=== PATIENT | female | born 1950 | race African-American/Black ===

== ENCOUNTER 2017-01-01 19:20 | Inpatient (IN) | payer OTHER ==
[~2017-01-01] VITALS: Ht 172.7 cm; Wt 155.3 kg
[2017-01-01] MEDS ORDERED: IPRATROPIUM BROM 0.5 MG/2.5ML INH SOL NEB ONE ×2 (19:45)
[2017-01-01] MEDS ORDERED: ALBUTEROL SULF 2.5 MG/0.5ML(0.5%) NEB SOLN NEB ONE ×2 (19:45)
[2017-01-01 20:11] LABS: Basophils % (auto) 0.4 % (0.0-2.0); Hemoglobin 12.3 g/dL (12.2-16.2); Mean Corpuscular Hemoglobin 27.2 pg (28.0-32.0); Monocytes # (auto) 1.4 uL; Neutrophils # (auto) 9.1 uL; Nucleated Red Blood Cells % 0.1 %; Red Cell Distribution Width 16.2 % (11.8-14.3)
[2017-01-01 20:13] LABS: Basophils # (auto) 0 uL; Eosinophils # (auto) 0 uL; Eosinophils % (auto) 0.4 % (0.0-7.0); Hematocrit 40.7 % (36.0-46.0); Lymphocytes # (auto) 1.5 uL; Lymphocytes % (auto) 12.6 % (10.0-50.0); Mean Corpuscular Hgb Conc. 30.3 g/dL (32.0-36.0); Monocytes % (auto) 11.3 % (0.0-12.0); Neutrophils % (auto) 75.3 % (37.0-80.0); Platelet Count (auto) 218 10^3/uL (140-450); Red Blood Cells 4.52 10^6/uL (4.0-5.20)
[2017-01-01 20:28] LABS: Albumin 2.6 g/dL (3.4-5.0); BUN/Creatinine Ratio 30.6; Calcium 8.6 mg/dL (8.5-10.1); INR 1.04 (0.9-1.15); Magnesium 2.6 mg/dL (1.6-2.6); Partial Thromboplastin Time 28.7 sec (22.64-33.71); Potassium 4.6 mmol/L (3.5-5.1); Prothrombin Time 11.3 sec (9.37-12.3)
[2017-01-01 20:36] LABS: Bilirubin, Total 0.4 mg/dL (0.2-1.0); Total Protein 7.9 g/dL (6.4-8.2)
[2017-01-01] MEDS ORDERED: IOHEXOL 350 MG/ML 100ML IJ ONE ×2 (21:15→21:22)
[2017-01-01] MEDS ORDERED: ETOMIDATE (2MG/ML) 20ML VIAL IV ONE ×2 (21:26→22:00)
[2017-01-01] MEDS ORDERED: SUCCINYLCHOLINE CHLORIDE 20 MG/ML 10ML VIAL IV ONE ×2 (21:26→21:30)
[2017-01-01] MEDS ORDERED: MIDAZOLAM DRIP 50 mg/50mL 50 ML IV ONE (21:29)
[2017-01-01] MEDS ORDERED: SODIUM CHLORIDE 0.9% 1,000 ML IV ONE (21:30)
[2017-01-01] MEDS: ETOMIDATE (2MG/ML) 20ML VIAL IV ONE (21:53)
[2017-01-01 22:00] VITALS: BP 66/36
[2017-01-01] MEDS: MIDAZOLAM DRIP 50 mg/50mL 50 ML IV SCH (22:00)
[2017-01-01] MEDS ORDERED: NOREPINEPHRINE 8 MG/250ML KIT 250 ML IV ONE (22:26)
[2017-01-01] MEDS ORDERED: methylPREDNISolone SOD SUCC 125 MG/2 ML VL IV ONE (22:45)
[2017-01-01] MEDS ORDERED: LEVOFLOXACIN 500MG 100 ML IV ONE (22:45)
[2017-01-01 22:46] LABS: Urine Bacteria NONE SEEN /hpf (None Seen); Urine Blood Negative /uL (Negative); Urine Mucus FEW (None Seen); Urine Specific Gravity 1.028 (1.001-1.035); Urine WBC 5 /hpf (0 - 5)
[2017-01-01] MEDS: NOREPINEPHRINE 8 MG/250ML KIT 250 ML IV SCH (22:53)
[2017-01-01] MEDS ORDERED: cefTRIAXone 1GM/50ML D5W 50 ML IV ONE (23:00)
[2017-01-01] MEDS ORDERED: PROPOFOL 100 ML IV ONE (23:12)
[2017-01-01] MEDS ORDERED: ENOXAPARIN SOD 150 MG/1 ML SYRINGE SC ONE (23:15)
[2017-01-01] MEDS: PROPOFOL 100 ML IV SCH (23:40)
[2017-01-02] VITALS (85 sets, daily range): BP systolic 88–165; BP diastolic 41–126
[2017-01-02] MEDS ORDERED: LACTULOSE 20Gm/30ML SOLN PO PRN (03:30)
[2017-01-02] MEDS ORDERED: NITROGLYCERIN 0.4 MG SL TAB SL PRN (03:30)
[2017-01-02] MEDS ORDERED: MORPHINE SULFATE 10 MG/ML INJ 1ML SDV IV PRN (03:30)
[2017-01-02] MEDS ORDERED: FUROSEMIDE 40 MG/4 ML VIAL IV ONE (03:30)
[2017-01-02] MEDS ORDERED: ASPirin 81 mg TAB JT ONE (03:30)
[2017-01-02] MEDS ORDERED: ONDANSETRON HCL 4 MG/2 ML VIAL IV PRN (03:30)
[2017-01-02] MEDS: SODIUM CHLOR 0.9% PF (SALINE LOCK) 10ML VIAL IV SCH ×3 (05:59→22:00)
[2017-01-02] MEDS: ALBUTEROL SULF 2.5 MG/0.5ML(0.5%) NEB SOLN NEB SCH ×5 (06:01→22:03)
[2017-01-02] MEDS: IPRATROPIUM BROM 0.5 MG/2.5ML INH SOL NEB SCH ×5 (06:01→22:03)
[2017-01-02] MEDS: METOPROLOL TARTRATE 25 MG TAB NG SCH ×2 (10:00→22:00)
[2017-01-02] MEDS ORDERED: PANTOPRAZOLE 40 MG/10 ML VIAL IV SCH (10:00)
[2017-01-02] MEDS ORDERED: FUROSEMIDE 40 MG/4 ML VIAL IV SCH (10:00)
[2017-01-02] MEDS ORDERED: ENALAPRIL MALEATE 10 MG TAB NG SCH (10:00)
[2017-01-02] MEDS ORDERED: ASPirin 81 mg TAB NG SCH (10:00)
[2017-01-02] MEDS: ENOXAPARIN SOD 150 MG/1 ML SYRINGE SC SCH ×2 (10:12→22:00)
[2017-01-02] MEDS: methylPREDNISolone SOD SUCC 40 MG/ML VL IV SCH ×2 (10:13→22:00)
[2017-01-02] MEDS: ACCU-CHEK COMFORT CURVE STRIP VI SCH ×2 (13:00→18:28)
[2017-01-02] MEDS: InsuLIN REG 1unit/0.01ml Soln (100units/ml) SC SCH ×2 (13:15→18:28)
[2017-01-02] MEDS ORDERED: DEXTROSE (50%) 50ML SYRG IV PRN (13:30)
[2017-01-02] MEDS ORDERED: LEVOFLOXACIN 500MG 100 ML IV SCH (21:00)
[2017-01-02] MEDS: MIDAZOLAM DRIP 50 mg/50mL 50 ML IV SCH (21:34)
[2017-01-02] MEDS ORDERED: ATORVASTATIN 20 MG TAB NG SCH (22:00)
[2017-01-02] MEDS: NOREPINEPHRINE 8 MG/250ML KIT 250 ML IV SCH (22:31)
[2017-01-02] MEDS: PROPOFOL 100 ML IV SCH (23:06)
[2017-01-03] VITALS: BP 125/86
[2017-01-03] MEDS: InsuLIN REG 1unit/0.01ml Soln (100units/ml) SC SCH
[2017-01-03] MEDS ORDERED: cefTRIAXone 1GM/50ML D5W 50 ML IV SCH
[2017-01-03 00:06] VITALS: BP 158/76
[2017-01-03 00:15] VITALS: BP 158/76
[2017-01-03] MEDS: ACCU-CHEK COMFORT CURVE STRIP VI SCH (00:25)
[2017-01-03 00:30] VITALS: BP 128/70
[2017-01-03 00:45] VITALS: BP 147/72
[2017-01-03 01:00] VITALS: BP 143/71
== END 2017-01-03 01:19 | disposition short-term general hospital (02) | DRG 208 ==
LOC: EDBD 19:20 → EDSEX 19:20 → ER 20:17 → TELE 20:18 → ICU WEST 01-02 05:12
PROVIDERS: ADMIT Family Medicine; ATTEND Family Medicine
PROC: 5A1935Z Respiratory Ventilation, Less than 24 Consecutive Hours (ICD-10-PCS; principal; 2017-01-02)
PROC: 0BH17EZ Insertion of Endotracheal Airway into Trachea, Via Natural or Artificial Opening (ICD-10-PCS; 2017-01-02)
DX: J96.22 Acute and chronic respiratory failure with hypercapnia (principal); G93.1 Anoxic brain damage, not elsewhere classified; J18.9 Pneumonia, unspecified organism; I11.0 Hypertensive heart disease with heart failure; I95.9 Hypotension, unspecified; I50.9 Heart failure, unspecified; Z99.81 Dependence on supplemental oxygen; J44.0 Chronic obstructive pulmonary disease with (acute) lower respiratory infection; Z68.43 Body mass index [BMI] 50.0-59.9, adult; J44.1 Chronic obstructive pulmonary disease with (acute) exacerbation; J96.21 Acute and chronic respiratory failure with hypoxia; E66.01 Morbid (severe) obesity due to excess calories; D72.829 Elevated white blood cell count, unspecified; E86.0 Dehydration; Z91.11 Patient's noncompliance with dietary regimen; Z91.14 Patient's other noncompliance with medication regimen; Z88.8 Allergy status to other drugs, medicaments and biological substances
CPT/HCPCS: 31500; 36415; 36600; 71010; 80053; 81001; 82805; 82962; 83605; 83735; 83880; 84443; 84484; 85025; 85379; 85610; 85730; 87040; 87070; 87077; 87081; 87186; 87205; 93005; 93970; 94002; 94003; 94640; 96365; 96367; 96372; 96375; 99291; C9113; J0330; J0696; J1815; J1956; J2250; J2704